=== PATIENT | male | born 1995 | race Caucasian/White ===

== ENCOUNTER 2024-10-29 20:12 | Emergency (ER) | payer BC ==
[2024-10-29] MEDS: Amoxicillin/Clavulanate K 875-125 MG Tab PO ONE (20:39)
== END 2024-10-29 20:54 | disposition home or self-care (01) ==
LOC: FB.ED 20:12
DX: K02.9 Dental caries, unspecified (principal); F17.200 Nicotine dependence, unspecified, uncomplicated; Z88.0 Allergy status to penicillin
CPT/HCPCS: 99283; A9270